=== PATIENT | female | born 1960 | race Caucasian/White ===

== ENCOUNTER 2017-07-23 19:28 | Emergency (ER) | payer SELFPAY ==
[2017-07-23 19:41] VITALS: RESP 18
[2017-07-23] MEDS ORDERED: Insulin Regular 1 UNITS/0.01 ML ML IV STA (19:48)
[2017-07-23] MEDS ORDERED: Sodium Chloride 0.9% 1,000 ML IV STA (19:48)
--- NOTE | 2017-07-23 19:48 | ED PDOC ---
Arrival/HPI - General Time Seen by Provider: 07/23/17 19:29 Historian: Patient - History of Present Illness Narrative History of Present Illness (Text): 07/23/17 19:45 56 year old female, post menopausal, pmh including anemia/htn/hyperlipidemia/non -insulin dependent diabetes, nkda, complaining of elevated blood sugar x 1 day. Pt. stated that she is on oral Dm medication with victoza, doesn't know her hgba1c, stated that she feels well, no nausea or vomiting, no palpitation, no rash, no numbness or tingling, no headache, no extremity swelling, no other medical or psychological complaints. Past Medical History - Provider Review Nursing Documentation Reviewed: Yes Family/Social History - Physician Review Nursing Documentation Reviewed: Yes Family/Social History: Unknown Family HX Allergies/Home Meds Allergies/Adverse Reactions: Allergies No Known Allergies Allergy (Verified 07/23/17 19:45) Review of Systems - Review of Systems Constitutional: absent: Fatigue, Fevers Eyes: absent: Vision Changes ENT: absent: Hearing Changes Respiratory: absent: SOB, Cough Cardiovascular: absent: Chest Pain Gastrointestinal: absent: Abdominal Pain, Diarrhea, Nausea, Vomiting Skin: absent: Rash, Pruritis Neurological: absent: Headache, Dizziness Psychiatric: absent: Anxiety, Depression, Suicidal Ideation Physical Exam Vital Signs Reviewed: Yes Vital Signs Temp Pulse Resp BP Pulse Ox 07/23/17 19:40 98.2 F 85 18 104/66 99 Temperature: Afebrile Blood Pressure: Normal Pulse: Regular Respiratory Rate: Normal Appearance: Positive for: Well-Appearing, Non-Toxic, Comfortable Pain Distress: None Mental Status: Positive for: Alert and Oriented X 3 Finger Stick Blood Glucose: 352 - Systems Exam Head: Present: Atraumatic, Normocephalic Pupils: Present: PERRL Extroacular Muscles: Present: EOMI Conjunctiva: Present: Normal Mouth: Present: Moist Mucous Membranes Neck: Present: Normal Range of Motion Respiratory/Chest: Present: Clear to Auscultation, Good Air Exchange. No: Respiratory Distress, Accessory Muscle Use Cardiovascular: Present: Regular Rate and Rhythm, Normal S1, S2. No: Murmurs Abdomen: No: Tenderness, Distention, Peritoneal Signs Back: Present: Normal Inspection Upper Extremity: Present: Normal Inspection. No: Cyanosis, Edema Lower Extremity: Present: Normal Inspection. No: Edema Neurological: Present: GCS=15, CN II-XII Intact, Speech Normal, Motor Func Grossly Intact, Gait Normal, Memory Normal Skin: Present: Warm, Dry, Normal Color. No: Rashes Psychiatric: Present: Alert, Oriented x 3, Normal Insight, Normal Concentration Medical Decision Making ED Course and Treatment: 07/23/17 19:47 -labs/ua -IVF/insulin -Observe and reassess 07/23/17 21:27 -Labs are non-significant except glucose 346 (IVF and insulin ordered), anemia 8.2 (pt. stated that this is chronic for her and has no abdominal pain/dark color stool and fatigue, asymptomatic, refused guaiac, out of iron supplement). -Pt. feels better, repeated FS is -Pt. request to be discharged home, will discharge home. -Discharge home with education on follow up with your own pmd and mechanical process engineer for management of your diabete, return to the ER for any new or worsening signs or symptoms. - Lab Interpretations Lab Results: 07/23/17 20:01 07/23/17 20:01 Lab Results 07/23/17 21:32: POC Glucose (mg/dL) 139 H 07/23/17 20:01: WBC 6.4, RBC 3.83, Hgb 8.2 L, Hct 26.9 L, MCV 70.2 L, MCH 21.4 L , MCHC 30.5 L, RDW 15.4 H, Plt Count 253, MPV 9.9, Gran % 50.4, Lymph % (Auto) 40.4 H, [place] % (Auto) 5.3, Eos % (Auto) 3.4, Baso % (Auto) 0.5, Gran # 3.24, Lymph # (Auto) 2.6, [place] # (Auto) 0.3, Eos # (Auto) 0.2, Baso # (Auto) 0.03 07/23/17 20:01: Sodium 137, Potassium 4.1, Chloride 100, Carbon Dioxide 27, Anion Gap 15, BUN 9, Creatinine 0.7, Est GFR ( Amer) > 60, Est GFR (Non- Af Amer) > 60, Random Glucose 346 H*, Calcium 8.9, Magnesium 1.7, Total Bilirubin 0.2, AST 22, ALT 22, Alkaline Phosphatase 53, Total Protein 6.3, Albumin 3.5, Globulin 2.8, Albumin/Globulin Ratio 1.2 07/23/17 19:37: POC Glucose (mg/dL) 352 H - Medication Orders Current Medication Orders: Discontinued Medications Sodium Chloride (Sodium Chloride 0.9%) 1,000 mls @ 999 mls/hr IV .Q1H1M STA Stop: 07/23/17 20:48 Last Admin: 07/23/17 20:12 Dose: 999 mls/hr eMAR Start Stop Document 07/23/17 20:12 LAURIE (Rec: 07/23/17 20:12 LAURIE [id number]) Intravenous Solution Start Date 07/23/17 Start Time 20:12 End Date 07/23/17 End time 21:12 Total Infusion Time 60 Insulin Human Regular (Humulin R) 6 units IV STAT STA Stop: 07/23/17 19:49 Last Admin: 07/23/17 20:11 Dose: 6 units eMAR Start Stop Document 07/23/17 20:11 LAURIE (Rec: 07/23/17 20:12 LAURIE [id number]) Intravenous Solution Start Date 07/23/17 Start Time 20:12 End Date 07/23/17 End time 20:13 Total Infusion Time 1 MAR Blood Glucose Document 07/23/17 20:11 LAURIE (Rec: 07/23/17 20:12 LAURIE [id number]) Blood Glucose Finger Stick Blood Glucose (70-120) 352 - PA / [employer] REFINER / Resident Statement MD/DO has reviewed & agrees with the documentation as recorded. Disposition/Present on Arrival - Present on Arrival Any Indicators Present on Arrival: No History of DVT/PE: No History of Uncontrolled Diabetes: No Urinary Catheter: No History of Decub. Ulcer: No - Disposition Have Diagnosis and Disposition been Completed?: Yes Diagnosis: Hyperglycemia due to type 2 diabetes mellitus, Chronic anemia Disposition: HOME/ ROUTINE Disposition Time: 19:48 Patient Plan: Discharge Patient Problems: Current Active Problems Problem Status Onset Hyperglycemia due to type 2 diabetes mellitus Acute Chronic anemia Acute Condition: IMPROVED Additional Instructions: -Discharge home with iron supplement, education on follow up with your own pmd and mechanical process engineer/hematology oncology for management of your diabete, return to the ER for any new or worsening signs or symptoms. Prescriptions: Ferrous Sulfate 140 mg PO DAILY #21 tablet.er Referrals: Sherri Horton MD [Medical Doctor] - Follow up with primary Wassef,Wagih G, MD [Primary Care Provider] - Follow up with primary Cuba Epstein MD [Staff Provider] - Follow up with primary Forms: WORK NOTE
[2017-07-23 20:17] LABS: BASO # 0.03 K/mm3 (0.0-2.0); BASO % 0.5 % (0.0-3.0); EOS # 0.2 (0.0-0.7); EOS % 3.4 % (1.5-5.0); GRAN # 3.24 (1.4-6.5); GRAN % 50.4 % (50.0-68.0); HEMOGLOBIN 8.2 g/dL (12.0-16.0); LYMPH # 2.6 (1.2-3.4); LYMPH % 40.4 % (22.0-35.0); MEAN CELL VOLUME 70.2 fl (80.0-105.0); MEAN CORPUSCULAR HEMOGLOBIN 21.4 pg (25.0-35.0); MEAN CORPUSCULAR HGB CONC 30.5 g/dl (31.0-37.0); MEAN PLATELET VOLUME 9.9 fl (7.0-11.0); MONO # 0.3 (0.1-0.6); MONO % 5.3 % (1.0-6.0); RBC 3.83 10^6/uL (3.5-6.1); RED CELL DISTRIBUTION WIDTH 15.4 % (11.5-14.5); WHITE BLOOD COUNT 6.4 10^3/ul (4.5-11.0)
[2017-07-23 20:23] LABS: ALB/GLOB RATIO 1.2 (1.1-1.8); ALBUMIN 3.5 g/dL (3.0-4.8); ALT/SGPT 22 U/L (7-56); AST/SGOT 22 U/L (14-36); BLOOD UREA NITROGEN 9 mg/dL (7-21); CALCIUM 8.9 mg/dL (8.4-10.5); GFR AFRICAN-AMERICAN > 60; GFR NON-AFRICAN AMERICAN > 60
[2017-07-23 21:53] VITALS: BP 116/68; PULSE 78; TEMP 98.1; O2SAT 100
== END 2017-07-23 21:53 | disposition home or self-care (01) ==
LOC: ED 19:28
DX: E11.65 Type 2 diabetes mellitus with hyperglycemia (principal); D64.9 Anemia, unspecified; E78.5 Hyperlipidemia, unspecified; I10 Essential (primary) hypertension
CPT/HCPCS: 80053; 82948; 83735; 85025; 96360; 99283; J7030